=== PATIENT | male | born 1995 | race Hispanic/Latino ===

== ENCOUNTER → 2019-04-16 | Outpatient (CLI) | payer OTHER ==
[2019-04-17 07:47] LABS: RAPID PLASMA REAGIN NONREACTIVE (NONREACTIVE)
== END | disposition home or self-care (01) ==
LOC: LAB 15:22
PROVIDERS: ATTEND Family Medicine
DX: Z72.51 High risk heterosexual behavior (principal)
CPT/HCPCS: 36415; 80074; 86592; 86695; 86701; 87390; 87486; 87797

== ENCOUNTER → 2021-06-27 | Outpatient (CLI) | payer OTHER | END | disposition home or self-care (01) | LOC: LAB 15:06 | PROVIDERS: ATTEND Internal Medicine Cardiovascular Disease | DX: Z20.822 Contact with and (suspected) exposure to COVID-19 (principal) | CPT/HCPCS: 87635; C9803 ==

== ENCOUNTER 2022-09-10 23:46 | Emergency (ER) | payer OTHER ==
[~2022-09-10] VITALS: Ht 175.3 cm; Wt 79.4 kg
[2022-09-11 00:20] VITALS: BP 130/77
== END 2022-09-11 00:24 | disposition home or self-care (01) ==
LOC: EDH 23:46
DX: S61.432A Puncture wound without foreign body of left hand, initial encounter (principal); W46.0XXA Contact with hypodermic needle, initial encounter; Y93.89 Activity, other specified; Y92.89 Other specified places as the place of occurrence of the external cause; Y99.8 Other external cause status
CPT/HCPCS: 99281

== ENCOUNTER 2022-10-27 02:47 | Emergency (ER) | payer BC, OTHER ==
[~2022-10-27] VITALS: Ht 175.3 cm; Wt 85.8 kg
[2022-10-27] MEDS ORDERED: SOLU-MEDROL 125MG VIAL ONE (03:09)
[2022-10-27] MEDS ORDERED: KETOROLAC 15MG/ML VIAL (15MG/ML) ONE (03:09)
[2022-10-27] MEDS ORDERED: SOLU-MEDROL 125MG VIAL IVP ONE (03:30)
[2022-10-27] MEDS ORDERED: KETOROLAC 15MG/ML VIAL (15MG/ML) IV ONE (03:30)
[2022-10-27] MEDS ORDERED: METH4TAB3 PO (03:57)
[2022-10-27 04:06] VITALS: BP 135/80
== END 2022-10-27 04:20 | disposition home or self-care (01) ==
LOC: EDH 02:47
DX: M43.6 Torticollis (principal); M79.18 Myalgia, other site; M54.2 Cervicalgia
CPT/HCPCS: 99284; 96374; 96375; J2930; J1885